=== PATIENT | male | born 1965 | race Caucasian/White ===

== ENCOUNTER 2019-04-23 22:37 | Emergency (ER) | payer SELFPAY ==
--- NOTE | 2019-04-23 23:03 | EDM.PDOC ---
ED HPI GENERAL MEDICAL PROBLEM - General Chief Complaint: General Stated Complaint: left forehead cyst/pain Time Seen by Provider: 04/23/19 23:00 Source of Information: Reports: Patient, Old Records ([facility] EMR. No paper hospital chart available.) History Limitations: Reports: No Limitations - History of Present Illness INITIAL COMMENTS - FREE TEXT/NARRATIVE: The patient drove himself to the emergency room via private automobile for evaluation of an increasing sore over his left eye, which has grown over the last couple of days. He previously thought that this was a small pimple however has had increasing swelling and soreness since that time. He denies any manipulation of the area by squeezing, etc. with no history of local injury, foreign body, etc. He does have a history of recurrent cellulitis in his scalp. The patient also denies any recent fever, cough, wheezing, dyspnea, etc.. No recent history of abdominal pain, heartburn, nausea, diarrhea, melena, gross hematochezia, or any food intolerance, including fatty foods, etc.. Onset: Gradual Onset Date: 04/21/19 Duration: Constant, Getting Worse Location: Reports: Face. Denies: Head, Neck, Chest, Abdomen, Back, Upper Extremity, Left, Upper Extremity, Right, Radiates to Quality: Reports: Same as Previous Episode, Stabbing Severity: Severe Improves with: Reports: None Worsens with: Reports: None Context: Reports: Other (As above). 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 (see below) (None) Left Forehead Pain Score (Numeric/FACES): 9 - Related Data Allergies Allergy/AdvReac Type Severity Reaction Status Date / Time amoxicillin [From Augmentin] Allergy Bronchospas Verified 04/23/19 22:44 ms clavulanic acid Allergy Bronchospas Verified 04/23/19 22:44 [From Augmentin] ms ketorolac [From Toradol] Allergy Bronchospas Verified 04/23/19 22:44 ms morphine Allergy Bronchospas Verified 04/23/19 22:44 ms tramadol Allergy Bronchospas Verified 04/23/19 22:44 ms Home Meds: Home Meds Sulfamethoxazole/Trimethoprim [Bactrim Ds Tablet] 1 each PO BIDMEALS #20 tablet 04/23/19 [Rx] clonazePAM [Klonopin] 1 mg PO BID 04/23/19 [History] Past Medical History HEENT History: Reports: Impaired Vision, Other (See Below) Other HEENT History: Patient wears glasses. Cardiovascular History: Denies: Hypertension Musculoskeletal History: Reports: Osteoarthritis Psychiatric History: Reports: Anxiety, Depression Dermatologic History: Reports: Chronic Cellulitis, Other (See Below) Other Dermatologic History: Chronic recurrent cellulitis particularly in scalp region. - Past Surgical History HEENT Surgical History: Reports: Oral Surgery, Other (See Below) Other HEENT Surgeries/Procedures: Complete dental extraction of the patient only wearing upper dentures. Social & Family History - Tobacco Use Smoking Status *Q: Current Every Day Smoker Tobacco Use Within Last Twelve Months: Cigarettes Years of Tobacco use: 30 Packs/Tins Daily: 0.5 Packs/Tins Daily Comment: Started smoking at age 23 with average use of 0.5 0.75 packs per day. Used Tobacco, but Quit: No Smoking Cessation Information Provided To Patient: Yes Second Hand Smoke Exposure: Yes Source of Second Hand Smoke Exposure: Daughter smokes Second Hand Smoke Education Provided: Yes ED ROS GENERAL - Review of Systems Review Of Systems: Comprehensive ROS is negative, except as noted in HPI. ED EXAM, GENERAL - Physical Exam Exam: See Below Exam Limited By: No Limitations General Appearance: Alert, WD/WN, No Apparent Distress, Anxious (Moderate) Eye Exam: Bilateral Eye: EOMI, Normal Inspection (Patient wears glasses. No nystagmus), PERRL Ears: Normal External Exam, Normal Canal, Hearing Grossly Normal, Normal TMs Nose: Normal Inspection, Normal Mucosa, No Blood Throat/Mouth: Normal Lips, Normal Gums, Normal Oropharynx, Normal Voice, No Airway Compromise. No: Normal Teeth (Complete absent dentition with patient normally only wearing his upper dentures as today.), Dysphagia, Perioral Cyanosis Head: Normocephalic, Facial Tenderness (Moderate at site of abscess), Other (2 cm in diameter abscess over the medial left eyebrow with +3 erythema and mild purulent drainage. No lymphangitis or evidence of foreign body, lymphangitis, etc.). No: Facial Swelling, Sinus Tenderness Neck: Normal Inspection, Supple, Non-Tender, Full Range of Motion. No: Lymphadenopathy (L), Lymphadenopathy (R), Thyromegaly Respiratory/Chest: No Respiratory Distress, Lungs Clear, Normal Breath Sounds, No Accessory Muscle Use, Chest Non-Tender. No: Pleural Rub, Retractions Cardiovascular: Normal Peripheral Pulses, Regular Rate, Rhythm, No Edema, No Gallop, No JVD, No Murmur, No Rub. No: Gallop/S3, Gallop/S4, Friction Rub Peripheral Pulses: 2+: Radial (L), Radial (R) GI/Abdominal: Normal Bowel Sounds, Soft, Non-Tender, No Organomegaly, No Distention, No Abnormal Bruit, No Mass. No: Guarding (Male) Exam: Deferred Rectal (Males) Exam: Deferred Back Exam: Normal Inspection, Full Range of Motion. No: CVA Tenderness (L), CVA Tenderness (R), Muscle Spasm Extremities: Normal Inspection, Normal Range of Motion, Non-Tender, No Pedal Edema, Normal Capillary Refill. No: David's Sign Neurological: Alert, Oriented, CN II-XII Intact, Normal Cognition, Normal Gait, No Motor/Sensory Deficits Psychiatric: Depressed Mood Skin Exam: Wound/Incision (As above). No: Diaphoretic, Increased Warmth, Lymphangitis Lymphatic: No Adenopathy ED I&D PROCEDURES - I&D Site: Left supraorbital Skin prep: Chlorhexidine (Hibiciens) Local anesthesia - Lidocaine (Xylocaine): 1% Plain Local Anesthetic Volume: 5cc Area Incised With: 11 Blade (23 mm in length incision) Drainage: Purulent, Small Amount Probed to Break Up Loculations: Yes Packed With: None Sterile Dressing: Adhesive Dressing, 4x4(s) Complications: No Progress/Comments: Despite local anesthesia as above the patient was very anxious and did not tolerate the procedure well. Secondary to patient's anxiety and discomfort only minimal probing with curved mosquito hemostats was conducted with majority of infection in the soft tissue and only small amounts of purulent drainage removed. Neosporin dressing placed by the nurse. Course - Vital Signs Last Recorded V/S: Last Vital Signs Temp 36.7 C 04/23/19 22:39 Pulse 73 04/23/19 22:39 Resp 22 H 04/23/19 22:39 BP 153/94 H 04/23/19 22:39 Pulse Ox 100 04/23/19 22:39 Vital Signs - 24 hr 04/23/19 22:39 Temperature [ 36.7 C Oral] Pulse, 73 Peripheral [ Right Pulse Oximetry] Respiratory 22 H Rate Blood Pressure 153/94 H [Left Upper Arm ] O2 Sat by Pulse 100 Oximetry - Orders/Labs/Meds Orders: Active Orders 24 hr Category Date Time Status CULTURE WOUND + SMEAR [RM] Stat Lab 04/23/19 23:40 Received Obtain Past Medical Record [OM.PC] Routine Oth 04/23/19 23:04 Active Labs: Specimen collected for Gram stain, culture, and sensitivity. Meds: Medications Discontinued Medications Generic Name Dose Route Start Last Admin Trade Name Edmundoq PRN Reason Stop Dose Admin Lidocaine HCl 5 ml 04/23/19 23:04 04/23/19 23:22 Xylocaine-Mpf 1% INJECT 04/23/19 23:05 5 ml ONETIME ONE Administration Neomycin/Polymyxin/Bacitracin 1 each 04/23/19 23:23 04/23/19 23:26 Triple Antibiotic Oint TOP 04/23/19 23:24 1 each ONETIME ONE Administration Trimethoprim/Sulfamethoxazole 1 tab 04/23/19 23:04 04/23/19 23:22 Septra Ds PO 04/23/19 23:05 1 tab ONETIME ONE Administration - Radiology Interpretation Free Text/Narrative:: None Departure - Departure Time of Disposition: 22:36 Disposition: Home, Self-Care 01 Condition: Good Clinical Impression: Tobacco abuse counseling, Elevated blood pressure reading, Mixed anxiety depressive disorder, Abscess - Discharge Information *PRESCRIPTION DRUG MONITORING PROGRAM REVIEWED*: Not Applicable *COPY OF PRESCRIPTION DRUG MONITORING REPORT IN PATIENT CHIQUIS: Not Applicable Prescriptions: Sulfamethoxazole/Trimethoprim [Bactrim Ds Tablet] 1 each PO BIDMEALS #20 tablet Instructions: Steps to Quit Smoking, [id number], Health Risks of Smoking, Cellulitis, Adult, [id number] Referrals: PCP,Not In Area [Primary Care Provider] - Forms: ED Department Discharge Additional Instructions: 1. Follow up with your regular provider in 10-14 days as needed, if symptoms persist. Bring these discharge instructions with you to that visit.. 2. Tylenol 650 mg by mouth every 4 hours and/or OTC ibuprofen 2-3 tabs by mouth every 6 hours with food as directed./needed. You may stagger these medications for 48-72 hours only, which essentially means that you are receiving a pain medication about every 2 hours. 3. NEVER EXCEED THE RECOMMENDED DOSE OF MEDICINES, INCLUDING OTC MEDICINES, ETC. 4. Antibacterial soap wash/soak with subsequent antibacterial dressing such as Neosporin, etc. as directed 2 times per day until the wound or laceration site completely heals. Keep the area clean and dry with activity restrictions as discussed. Never use hydrogen peroxide for wound care. 5. Stop all tobacco use FABY as directed/per provided information and consider contacting Quit LIne, etc.. 6. Continue to observe your blood pressures closely through your regular provider. 7. Immediately after this visit verify that your cellular telephone's voicemail has been activated and is empty. Also verify that your home telephone 's answering machine is operating properly and has space to receive messages. Note that it is sometimes necessary for us to be able to contact you at a later date to discuss your medical care. 8. Please remember that we are ALWAYS here for you and want to answer any questions you may have. Feel free to call the hospital any time and we call you back FABY. Sepsis Event Note - Evaluation Sepsis Screening Result: No Definite Risk - Focused Exam Vital Signs: Vital Signs Temp Pulse Resp BP Pulse Ox 04/23/19 22:39 36.7 C 73 22 H 153/94 H 100 Date Exam was Performed: 04/24/19 Time Exam was Performed: 00:44 - Problem List & Annotations (1) Abscess SNOMED Code(s): 457386753 Code(s): L02.91 - CUTANEOUS ABSCESS, UNSPECIFIED Status: Acute Priority: High Onset Date: ~04/21/19 Annotation/Comment:: I&D performed as above. Specimen collected for Gram stain, culture and sensitivity. Initial dose of Bactrim DS given in the emergency room with additional ten-day course of antibiotics. Wound care, etc. discussed. (2) Elevated blood pressure reading SNOMED Code(s): 11590660 Code(s): R03.0 - ELEVATED BLOOD-PRESSURE READING, W/O DIAGNOSIS OF HTN Status: Acute Priority: Medium Onset Date: 04/23/19 Annotation/Comment:: Patient denies previous history of hypertension. Note anxiety and pain components today with blood pressures to be observed closely by his regular provider. Note that the patient is visiting his daughter and is not from this area. (3) Mixed anxiety depressive disorder SNOMED Code(s): 860067291 Code(s): F41.8 - OTHER SPECIFIED ANXIETY DISORDERS Status: Chronic Priority: Medium Annotation/Comment:: Moderate control based on today's exam. Patient apparently has been visiting his daughter since 04/21 and forgot his "anxiety pills" at home and repetitively asked that I give him a limited supply/ prescription of his Klonopin. He also repetitively requested narcotic pain medications during this visit. It was explained to him that I could not prescribe these controlled substances through the emergency room, and that he needed to contact his regular provider tomorrow to telephone in these prescriptions to the local pharmacy. Continue to observe his symptoms and medications closely by his regular provider. Emotional support was provided, although he was occasionally confrontational. (4) Tobacco abuse counseling SNOMED Code(s): 122946098, 155009678, 317940137 Code(s): Z71.6 - TOBACCO ABUSE COUNSELING Status: Chronic Priority: Medium Annotation/Comment:: Tobacco cessation strongly encouraged with information provided at discharge. - Problem List Review Problem List Initiated/Reviewed/Updated: Yes - My Orders Last 24 Hours: My Active Orders 04/23/19 23:04 Obtain Past Medical Record [OM.PC] Routine 04/23/19 23:40 CULTURE WOUND + SMEAR [RM] Stat - Assessment/Plan Last 24 Hours: My Active Orders 04/23/19 23:04 Obtain Past Medical Record [OM.PC] Routine 04/23/19 23:40 CULTURE WOUND + SMEAR [RM] Stat Assessment:: As above Plan: As above. Extensive precautions were given to the patient, who is in agreement with the treatment plan. See Patient Instructions for further treatment and plan.
[2019-04-23] MEDS ORDERED: Sulfamethoxazole/Trimethoprim 800-160 MG Tab PO ONE (23:04)
[2019-04-23] MEDS ORDERED: Bacitracin/Neomycin/Polymyxin B Oint 0.9 GM U/D Packet TOP ONE (23:23)
== END 2019-04-23 23:36 | disposition home or self-care (01) ==
LOC: LL.ED 22:37
DX: L02.01 Cutaneous abscess of face (principal); R03.0 Elevated blood-pressure reading, without diagnosis of hypertension; F41.8 Other specified anxiety disorders; Z71.6 Tobacco abuse counseling; Z88.0 Allergy status to penicillin; Z88.8 Allergy status to other drugs, medicaments and biological substances; Z88.6 Allergy status to analgesic agent; Z88.5 Allergy status to narcotic agent; F17.210 Nicotine dependence, cigarettes, uncomplicated
CPT/HCPCS: 10060; 87070; 87077; 87186; 87205; 99284; A9270; J2001

== ENCOUNTER 2019-06-24 19:34 | Emergency (ER) | payer OTHER | END 2019-06-24 19:45 | disposition left against medical advice (07) | LOC: LL.ED 19:34 | DX: Z53.21 Procedure and treatment not carried out due to patient leaving prior to being seen by health care provider (principal) ==

== ENCOUNTER 2021-04-22 14:22 | Emergency (ER) | payer MEDICAID ==
[2021-04-22] MEDS ORDERED: Sodium Chloride 0.9% 10 ML Syringe FLUSH PRN (14:32)
[2021-04-22 15:35] VITALS: BP 125/87; PULSE 74
[2021-04-22 15:37] LABS: ANION GAP 10.3 meq/L (7-15); CHLORIDE,CL 103 mmol/L (98-107); SODIUM,NA 141 mmol/L (136-145)
--- NOTE | 2021-04-22 15:45 | EDM.PDOC ---
ED HPI GENERAL MEDICAL PROBLEM - General Chief Complaint: Chest Pain Stated Complaint: L sided chest pain Time Seen by Provider: 04/22/21 14:55 Source of Information: Reports: Patient History Limitations: Reports: No Limitations - History of Present Illness INITIAL COMMENTS - FREE TEXT/NARRATIVE: Patient comes to ED with complaint of left sided chest pain. Worse with breathing/coughing. Some worsening with pressure. Similar pain in past when he was diagnosed with pneumonia. Denies fevers. Mild chills today. No runny nose/sore throat. Smoker. Denies GI//Neuro changes. No other new pain complaints. Reports COPD in past medical history. Denies other chronic medical conditions. No sputum production. No increased SOB. - Related Data Allergies Allergy/AdvReac Type Severity Reaction Status Date / Time amoxicillin [From Augmentin] Allergy Bronchospas Verified 04/23/19 22:44 ms clavulanic acid Allergy Bronchospas Verified 04/23/19 22:44 [From Augmentin] ms ketorolac [From Toradol] Allergy Bronchospas Verified 04/23/19 22:44 ms morphine Allergy Bronchospas Verified 04/23/19 22:44 ms tramadol Allergy Bronchospas Verified 04/23/19 22:44 ms Home Meds: Home Meds Albuterol Sulfate [Proair Hfa] 2 puff INH Q4HR PRN 04/22/21 [History] Doxycycline [Vibra-Tabs] 100 mg PO Q12HR #10 tab 04/22/21 [Rx] Fluticasone Propion/Salmeterol [Advair 250-50 Diskus] 1 puff INH BID 04/22/21 [History] Past Medical History HEENT History: Reports: Impaired Vision, Other (See Below) Other HEENT History: Patient wears glasses. Respiratory History: Reports: COPD Musculoskeletal History: Reports: Osteoarthritis Psychiatric History: Reports: Anxiety, Depression, Other (See Below) (Suspect chronic ETOH use) Dermatologic History: Reports: Chronic Cellulitis, Other (See Below) Other Dermatologic History: Chronic recurrent cellulitis particularly in scalp region. - Past Surgical History HEENT Surgical History: Reports: Oral Surgery, Other (See Below) Other HEENT Surgeries/Procedures: Complete dental extraction of the patient only wearing upper dentures. Social & Family History - Tobacco Use Tobacco Use Status *Q: Current Every Day Tobacco User Tobacco Use Within Last Twelve Months: Cigarettes Years of Tobacco use: 40 Packs/Tins Daily: 1 Smoking Cessation Information Provided To Patient: Patient Refused - Alcohol Use Alcohol Use Comment: Patient denies chronic daily ETOH use. ED ROS GENERAL - Review of Systems Review Of Systems: Comprehensive ROS is negative, except as noted in HPI. ED EXAM, GENERAL - Physical Exam Exam: See Below Exam Limited By: No Limitations General Appearance: Alert, No Apparent Distress, Other (looks older than stated age. Smells of ETOH) Eye Exam: Bilateral Eye: EOMI, PERRL Ears: Hearing Grossly Normal Nose: No: Nasal Deformity, Nasal Swelling, Nasal Drainage Throat/Mouth: Normal Lips, Normal Voice, No Airway Compromise Head: Atraumatic, Normocephalic Neck: Supple Respiratory/Chest: No Respiratory Distress, Lungs Clear, No Accessory Muscle Use, Decreased Breath Sounds (throughout), Other (mild tenderness with palpation left lower anterior chest) Cardiovascular: Regular Rate, Rhythm, No Murmur GI/Abdominal: Soft, Non-Tender, No Distention Rectal (Males) Exam: Deferred Back Exam: No: Muscle Spasm Extremities: Normal Range of Motion Neurological: Alert, Oriented, Normal Cognition, Normal Gait, Other (equal tone/strength) Psychiatric: Normal Affect, Normal Mood Skin Exam: Warm, Dry, Intact, Normal Color Course - Vital Signs Last Recorded V/S: Last Vital Signs Temp 36.6 C 04/22/21 14:30 Pulse 74 04/22/21 15:30 Resp 16 04/22/21 15:30 BP 125/87 04/22/21 15:30 Pulse Ox 94 L 04/22/21 15:30 - Orders/Labs/Meds Orders: Active Orders 24 hr Category Date Time Status Peripheral IV Care [RC] . DIRECTED Care 04/22/21 14:33 Active Chest 2V [CR] Stat Exams 04/22/21 14:44 Taken DRUG SCREEN, URINE [URCHEM] Stat Lab 04/22/21 14:35 Ordered Sodium Chloride 0.9% [Saline Flush] Med 04/22/21 14:32 Active 10 ml FLUSH ASDIRECTED PRN Peripheral IV Insertion Adult [OM.PC] Routine Oth 04/22/21 14:32 Ordered Medication Orders Sodium Chloride (Sodium Chloride 0.9% 10 Ml Syringe) 10 ml FLUSH ASDIRECTED PRN PRN Reason: Keep Vein Open Labs: Laboratory Tests 04/22/21 04/22/21 04/22/21 Range/Units 14:30 14:30 14:30 WBC Cancelled Corrected WBC Cancelled RBC Cancelled Hgb Cancelled Hct Cancelled MCV Cancelled MCH Cancelled MCHC Cancelled RDW Cancelled RDW Std Deviation Cancelled RDW Coeff of Frida Cancelled Plt Count Cancelled MPV Cancelled Neut % (Auto) (45.0-80.0) % Lymph % (Auto) (10.0-50.0) % [place]asper % (Auto) (2.0-14.0) % Eos % (Auto) (0.0-5.0) % Baso % (Auto) (0.0-2.0) % Neut # (Auto) (1.40-7.00) K/uL Lymph # (Auto) (0.50-3.50) K/uL Jasper # (Auto) (0.00-1.00) K/uL Eos # (Auto) (0.00-0.50) K/uL Baso # (Auto) (0.00-0.20) K/uL Neutrophils % (Manual) Cancelled Band Neutrophils % Cancelled Lymphocytes % (Manual) Cancelled Atypical Lymphs % Cancelled Immat Monocytes % (Man) Cancelled Monocytes % (Manual) Cancelled Eosinophils % (Manual) Cancelled Basophils % (Manual) Cancelled Metamyelocytes % Cancelled Myelocytes % Cancelled Promyelocytes % Cancelled Blast Cells % Cancelled Plasma Cell % (Manual) Cancelled Nucleated RBC % Cancelled Immature Gran # Cancelled Absolute Neutrophils Cancelled Absolute Seg Neuts Cancelled Band Neutrophils # Cancelled Lymphocytes # (Manual) Cancelled Monocytes # (Manual) Cancelled Eosinophils # (Manual) Cancelled Basophils # (Manual) Cancelled Absolute Metamyelocyte Cancelled Absolute Myelocytes Cancelled Absolute Promyelocytes Cancelled Absolute Plasma Cells Cancelled Nucleated RBCs Cancelled Differential Comment Cancelled Bilobed Neuts Cancelled Hypersegmented Neuts Cancelled Variant Lymphocytes Cancelled Atypical Lymphocytes Cancelled Abnormal Lymphocytes Cancelled Reactive Lymphocytes Cancelled Vacuolated Monocytes Cancelled Absolute Blast Cells Cancelled Toxic Granulation Cancelled WBC Morphology Comment Cancelled Immature Plt Fraction Cancelled Plt Morphology Comment Cancelled Polychromasia Cancelled Hypochromasia Cancelled Poikilocytosis Cancelled Basophilic Stippling Cancelled Anisocytosis Cancelled Microcytosis Cancelled Macrocytosis Cancelled Spherocytes Cancelled Micro Spherocytes Cancelled Siderocytes Cancelled Sickle Cells Cancelled Target Cells Cancelled Tear Drop Cells Cancelled Ovalocytes Cancelled Stomatocytes Cancelled [place] Cells Cancelled Elliptocytes Cancelled Acanthocytes (Spur) Cancelled Rouleaux Cancelled Schistocytes Cancelled RBC Morph Comment Cancelled Smear Path Review Cancelled D-Dimer, Quantitative 321 (0-400) ng/mL Sodium 141 (136-145) mmol/L Potassium 4.0 (3.5-5.1) mmol/L Chloride 103 (98-107) mmol/L Carbon Dioxide 27.7 (21.0-32.0) mmol/L Anion Gap 10.3 (7-15) meq/L BUN 15 (7-18) mg/dL Creatinine 0.82 (0.51-1.17) mg/dL Est Cr Clr Drug Dosing TNP Estimated GFR (MDRD) > 60 mL/min Glucose 95 (70-99) mg/dL Lactic Acid (0.4-2.0) mmol/L Calcium 8.8 (8.5-10.1) mg/dL Magnesium 1.6 L (1.8-2.4) mg/dL Total Bilirubin 0.6 (0.2-1.0) mg/dL AST 188 H (15-37) U/L ALT 124 H (12-78) U/L Alkaline Phosphatase 116 (46-116) IU/L Troponin I High Sens 4 (<=76) ng/L NT-Pro-B Natriuret Pep (0-125) pg/mL Total Protein 7.5 (6.4-8.2) g/dL Albumin 3.7 (3.4-5.0) g/dL Ethyl Alcohol 0.252 H (0.000-0.080) g/dL Slides for Path Review Cancelled 04/22/21 04/22/21 04/22/21 Range/Units 14:30 14:30 14:30 WBC 4.3 Corrected WBC RBC 4.14 L Hgb 14.3 Hct 40.9 MCV 98.8 H MCH 34.5 H MCHC 35.0 RDW 11.3 RDW Std Deviation RDW Coeff of Frida Plt Count 101 L MPV Neut % (Auto) 58.1 (45.0-80.0) % Lymph % (Auto) 30.4 (10.0-50.0) % [place] % (Auto) 7.8 (2.0-14.0) % Eos % (Auto) 3.2 (0.0-5.0) % Baso % (Auto) 0.5 (0.0-2.0) % Neut # (Auto) 2.52 (1.40-7.00) K/uL Lymph # (Auto) 1.32 (0.50-3.50) K/uL [place]asper # (Auto) 0.34 (0.00-1.00) K/uL Eos # (Auto) 0.14 (0.00-0.50) K/uL Baso # (Auto) 0.02 (0.00-0.20) K/uL Neutrophils % (Manual) Band Neutrophils % Lymphocytes % (Manual) Atypical Lymphs % Immat Monocytes % (Man) Monocytes % (Manual) Eosinophils % (Manual) Basophils % (Manual) Metamyelocytes % Myelocytes % Promyelocytes % Blast Cells % Plasma Cell % (Manual) Nucleated RBC % Immature Gran # Absolute Neutrophils Absolute Seg Neuts Band Neutrophils # Lymphocytes # (Manual) Monocytes # (Manual) Eosinophils # (Manual) Basophils # (Manual) Absolute Metamyelocyte Absolute Myelocytes Absolute Promyelocytes Absolute Plasma Cells Nucleated RBCs Differential Comment Bilobed Neuts Hypersegmented Neuts Variant Lymphocytes Atypical Lymphocytes Abnormal Lymphocytes Reactive Lymphocytes Vacuolated Monocytes Absolute Blast Cells Toxic Granulation WBC Morphology Comment Immature Plt Fraction Plt Morphology Comment Polychromasia Hypochromasia Poikilocytosis Basophilic Stippling Anisocytosis Microcytosis Macrocytosis Spherocytes Micro Spherocytes Siderocytes Sickle Cells Target Cells Tear Drop Cells Ovalocytes Stomatocytes [place] Cells Elliptocytes Acanthocytes (Spur) Rouleaux Schistocytes RBC Morph Comment Smear Path Review D-Dimer, Quantitative (0-400) ng/mL Sodium (136-145) mmol/L Potassium (3.5-5.1) mmol/L Chloride (98-107) mmol/L Carbon Dioxide (21.0-32.0) mmol/L Anion Gap (7-15) meq/L BUN (7-18) mg/dL Creatinine (0.51-1.17) mg/dL Est Cr Clr Drug Dosing Estimated GFR (MDRD) mL/min Glucose (70-99) mg/dL Lactic Acid 1.8 (0.4-2.0) mmol/L Calcium (8.5-10.1) mg/dL Magnesium (1.8-2.4) mg/dL Total Bilirubin (0.2-1.0) mg/dL AST (15-37) U/L ALT (12-78) U/L Alkaline Phosphatase (46-116) IU/L Troponin I High Sens (<=76) ng/L NT-Pro-B Natriuret Pep 153 H (0-125) pg/mL Total Protein (6.4-8.2) g/dL Albumin (3.4-5.0) g/dL Ethyl Alcohol (0.000-0.080) g/dL Slides for Path Review Meds: Medications Generic Name Dose Route Start Last Admin Trade Name Freq PRN Reason Stop Dose Admin Sodium Chloride 10 ml 04/22/21 14:32 Sodium Chloride 0.9% 10 Ml Syringe FLUSH ASDIRECTED PRN Keep Vein Open - Re-Assessments/Exams Free Text/Narrative Re-Assessment/Exam: 04/22/21 15:55 No obvious infiltrate noted on chest xray. No fracture of ribs noted. Compared to a previous film from January. Patient had bilateral infiltrates at that time. COPD/degenerative spinal changes. WBC normal. O2 sats 93% on room air. Patient denied SOB. Suspect this is his baseline secondary to heavy smoking history and COPD. ETOH quite elevated at 0.252 Patient walking/talking and showed no obvious impairment. We asked him about the high ETOH level and he replied that he was drinking to treat the chest pain. Denied any issues with ETOH abuse/dependence. Some elevation in AST/ALT Normal Troponin and DDimer. EKG showed normal sinus rhythm. Mag low at 1.6 proBNP mild elevation 153 Will cover patient for atypical pneumonia given smoking history/previous similar pain with pneumonia. Given Doxy. Noted that patient said he had an xray here and was started by clinic on a 5 day course of antibiotics for pneumonia "3 weeks ago". Chart review shows that patient had xray/pneumonia 3 months ago. Recommended to patient to avoid alcohol in excess and supplemental magnesium would be beneficial. To follow up with clinic next week if no improvement in 4 days. Smoking cessation also encouraged. Patient is not interested in quitting at this time. To follow up if any sudden acute worsening noted. Departure - Departure Time of Disposition: 15:42 Disposition: Home, Self-Care 01 Condition: Good Clinical Impression: Atypical chest pain, Hypomagnesemia, Elevated LFTs, Thrombocytopenia Elevated ETOH level Qualifiers: Blood alcohol level: 240 mg/100 ml or more Qualified Code(s): Y90.8 - Blood alcohol level of 240 mg/100 ml or more - Discharge Information *PRESCRIPTION DRUG MONITORING PROGRAM REVIEWED*: Not Applicable *COPY OF PRESCRIPTION DRUG MONITORING REPORT IN PATIENT CHIQUIS: Not Applicable Prescriptions: Doxycycline [Vibra-Tabs] 100 mg PO Q12HR #10 tab Referrals: Janine Fuentes PA [Primary Care Provider] - Forms: ED Department Discharge Additional Instructions: Take the Doxy one every 12 hours. If you are not better within 4 days please follow up with your clinic for recheck. Recommend avoiding alcohol while you are being treated with the antibiotics. Continue your inhalers. If you have worsening problems please return to ER. Sepsis Event Note (ED) - Evaluation Sepsis Screening Result: No Definite Risk - Focused Exam Vital Signs: Vital Signs Temp Pulse Resp BP Pulse Ox 04/22/21 15:30 74 16 125/87 94 L 04/22/21 15:00 70 16 135/80 93 L 04/22/21 14:30 36.6 C 71 14 135/80 93 L - My Orders Last 24 Hours: My Active Orders 04/22/21 14:32 Sodium Chloride 0.9% [Saline Flush] 10 ml FLUSH ASDIRECTED PRN Peripheral IV Insertion Adult [OM.PC] Routine 04/22/21 14:33 Peripheral IV Care [RC] . DIRECTED 04/22/21 14:35 DRUG SCREEN, URINE [URCHEM] Stat 04/22/21 14:44 Chest 2V [CR] Stat - Assessment/Plan Last 24 Hours: My Active Orders 04/22/21 14:32 Sodium Chloride 0.9% [Saline Flush] 10 ml FLUSH ASDIRECTED PRN Peripheral IV Insertion Adult [OM.PC] Routine 04/22/21 14:33 Peripheral IV Care [RC] . DIRECTED 04/22/21 14:35 DRUG SCREEN, URINE [URCHEM] Stat 04/22/21 14:44 Chest 2V [CR] Stat
== END 2021-04-22 15:48 | disposition home or self-care (01) ==
LOC: LL.ED 14:22
DX: R07.89 Other chest pain (principal); D69.6 Thrombocytopenia, unspecified; E83.42 Hypomagnesemia; J44.9 Chronic obstructive pulmonary disease, unspecified; Y90.8 Blood alcohol level of 240 mg/100 ml or more; Z88.5 Allergy status to narcotic agent; Z88.0 Allergy status to penicillin; Z88.6 Allergy status to analgesic agent; Z72.0 Tobacco use
CPT/HCPCS: 36415; 71046; 80053; 80307; 83605; 83735; 83880; 84484; 85025; 85379; 93005; 99284; 99285-25

== ENCOUNTER 2022-01-19 11:41 | Emergency (ER) | payer MEDICAID ==
[2022-01-19] MEDS ORDERED: Sodium Chloride 0.9% 1,000 ML IV ONE (12:10)
[2022-01-19] MEDS ORDERED: HYDROmorphone 1 MG/ML Syringe ONE (12:13)
[2022-01-19] MEDS ORDERED: Ondansetron 4 MG/2 ML SDV ONE (12:13)
[2022-01-19] MEDS ORDERED: HYDROmorphone 1 MG/ML Syringe IVPUSH ONE ×2 (12:13→12:58)
[2022-01-19] MEDS ORDERED: Ondansetron 4 MG/2 ML SDV IVPUSH ONE (12:13)
[2022-01-19] MEDS: Sodium Chloride 0.9% 10 ML Syringe FLUSH PRN ×2 (12:22→13:21)
[2022-01-19 12:32] LABS: CORONAVIRUS COVID-19 NAA NEGATIVE (NEGATIVE); RESPIRATORY SYNCYTIAL VIR NAA NEGATIVE (NEGATIVE)
[2022-01-19 13:28] LABS: ANION GAP 17.5 meq/L (7-15)
[2022-01-19] MEDS ORDERED: Magnesium Sulfate/Water 2 GM in Premix Bag 1 BAG IV ONE (13:33)
[2022-01-19] MEDS ORDERED: Iopamidol 755 Mg/ML 100 ML Bottle IVPUSH ONE ×2 (14:00→14:01)
[2022-01-19] MEDS ORDERED: Thiamine 200 MG/2 ML MDV IVPUSH ONE (14:21)
[2022-01-19 15:28] LABS: BARBITURATE SCREEN,URINE NEGATIVE (NEGATIVE); BENZODIAZEPINES SCREEN,URINE POSITIVE (NEGATIVE); EDDP,URINE SCREEN NEGATIVE (NEGATIVE); TCA SCREEN,URINE NEGATIVE (NEGATIVE); THC SCREEN,URINE 50 NG/ML NEGATIVE (NEGATIVE)
[2022-01-19 15:37] LABS: BUPRENORPHINE SCREEN,URINE POSITIVE (NEGATIVE)
== END 2022-01-19 16:25 | disposition left against medical advice (07) ==
LOC: LL.ED 11:41
DX: R00.0 Tachycardia, unspecified (principal); E83.42 Hypomagnesemia; F11.90 Opioid use, unspecified, uncomplicated; J44.9 Chronic obstructive pulmonary disease, unspecified; M19.90 Unspecified osteoarthritis, unspecified site; F17.210 Nicotine dependence, cigarettes, uncomplicated; Z88.0 Allergy status to penicillin; Z88.5 Allergy status to narcotic agent; Z88.6 Allergy status to analgesic agent; Z20.822 Contact with and (suspected) exposure to COVID-19
CPT/HCPCS: 0241U; 36415; 71046; 71275; 80048; 80076; 80305-QW; 80307; 81001; 82140; 83605; 83735; 84484; 85025; 85379; 85610; 93005; 93010; 96361; 96365; 96366; 96375; 96376; 99284; 99285-25; J1170; J2405; J3411; J3475; J3490; J7030; Q9967

== ENCOUNTER 2022-05-09 17:10 | Emergency (ER) | payer MEDICAID | END 2022-05-09 18:46 | disposition home or self-care (01) | LOC: LL.ED 17:10 | DX: R42 Dizziness and giddiness (principal); J44.9 Chronic obstructive pulmonary disease, unspecified; Z88.0 Allergy status to penicillin; Z88.5 Allergy status to narcotic agent | CPT/HCPCS: 99283 ==

== ENCOUNTER 2022-05-10 13:00 | Emergency (ER) | payer MEDICAID ==
[2022-05-10] MEDS ORDERED: Sodium Chloride 0.9% 10 ML Syringe FLUSH PRN (14:12)
[2022-05-10] MEDS: Sodium Chloride 0.9% 1,000 ML IV ONE ×2 (14:50→16:00)
[2022-05-10 14:59] LABS: CHLORIDE,CL 90 mmol/L (98-107); SODIUM,NA 130 mmol/L (136-145)
[2022-05-10 15:00] LABS: ANION GAP 13.2 meq/L (7-15); ESTIMATED GFR 114 mL/min (>=60)
[2022-05-10 15:44] LABS: CORONAVIRUS COVID-19 NAA NEGATIVE (NEGATIVE); RESPIRATORY SYNCYTIAL VIR NAA NEGATIVE (NEGATIVE)
[2022-05-10] MEDS: Potassium Chloride Riders 10 MEQ in Premix Bag 1 BAG IV ONE (16:15)
[2022-05-10] MEDS: Potassium Chloride Riders 10 MEQ in Premix Bag 1 BAG IV SCH (16:16)
== END 2022-05-10 17:20 | disposition home or self-care (01) ==
LOC: LL.ED 13:00
DX: E86.0 Dehydration (principal); E87.1 Hypo-osmolality and hyponatremia; E87.6 Hypokalemia; J44.9 Chronic obstructive pulmonary disease, unspecified; M19.90 Unspecified osteoarthritis, unspecified site; Z79.899 Other long term (current) drug therapy; Z88.0 Allergy status to penicillin; Z88.1 Allergy status to other antibiotic agents; Z88.5 Allergy status to narcotic agent; Z20.822 Contact with and (suspected) exposure to COVID-19
CPT/HCPCS: 0241U; 36415; 80053; 85025; 96361; 96365; 99284-25; J3480; J7030

== ENCOUNTER 2022-05-25 13:49 | Inpatient (IN) | payer MEDICAID ==
[2022-05-25] MEDS ORDERED: Sodium Chloride 0.9% 1,000 ML IV ONE ×2 (14:17→15:26)
[2022-05-25 14:50] LABS: ANION GAP 15.5 meq/L (7-15); CHLORIDE,CL 92 mmol/L (98-107); ESTIMATED GFR 102 mL/min (>=60); SODIUM,NA 131 mmol/L (136-145)
[2022-05-25 15:06] LABS: RESPIRATORY SYNCYTIAL VIR NAA NEGATIVE (NEGATIVE)
[2022-05-25 15:10] LABS: CORONAVIRUS COVID-19 NAA POSITIVE (NEGATIVE)
[2022-05-25] MEDS ORDERED: HYDROmorphone 2 MG Tab PO ONE (15:50)
[2022-05-25 15:56] LABS: BARBITURATE SCREEN,URINE NEGATIVE (NEGATIVE); BENZODIAZEPINES SCREEN,URINE NEGATIVE (NEGATIVE); EDDP,URINE SCREEN NEGATIVE (NEGATIVE); TCA SCREEN,URINE NEGATIVE (NEGATIVE); THC SCREEN,URINE 50 NG/ML NEGATIVE (NEGATIVE)
[2022-05-25] MEDS ORDERED: Dexamethasone 10 MG/ML SDV IVPUSH ONE (15:59)
[2022-05-25 16:00] LABS: BUPRENORPHINE SCREEN,URINE POSITIVE (NEGATIVE)
[2022-05-25] MEDS ORDERED: Iopamidol 755 Mg/ML 100 ML Bottle ONE (16:08)
[2022-05-25] MEDS: Sodium Chloride 0.9% 10 ML Syringe FLUSH PRN ×3 (16:32→19:58)
[2022-05-25] MEDS ORDERED: Iopamidol 755 Mg/ML 100 ML Bottle IVPUSH ONE (17:18)
[2022-05-25] MEDS ORDERED: cefTRIAXone 1 GM in Sodium Chloride 0.9% 100 ML IV SCH (18:15)
[2022-05-25] MEDS ORDERED: Azithromycin 500 MG in Sodium Chloride 0.9% 250 ML IV SCH ×2 (18:15→20:00)
[2022-05-25] MEDS ORDERED: Ondansetron 4 MG/2 ML SDV IVPUSH PRN (18:49)
[2022-05-25] MEDS ORDERED: Nicotine 21 MG/24 Hr Patch TRDERM SCH (19:00)
[2022-05-25] MEDS ORDERED: HYDROmorphone 2 MG Tab PO PRN ×2 (19:17→21:58)
[2022-05-25] MEDS ORDERED: Ketorolac 15 MG/ML SDV IVPUSH PRN (19:19)
[2022-05-25] MEDS: Nicotine 21 MG/24 Hr Patch TRDERM SCH (19:55)
[2022-05-25] MEDS: Sodium Chloride 0.9% 1,000 ML IV SCH (19:56)
[2022-05-25] MEDS: Albuterol/Ipratropium 3.0-0.5 MG/3 ML Neb Soln NEB SCH (19:56)
[2022-05-25] MEDS: Naproxen 250 MG Tab PO SCH (20:59)
[2022-05-26] MEDS: Albuterol/Ipratropium 3.0-0.5 MG/3 ML Neb Soln NEB SCH ×4 (01:38→19:12)
[2022-05-26] MEDS: Sodium Chloride 0.9% 1,000 ML IV SCH ×2 (06:45→18:47)
[2022-05-26] MEDS ORDERED: Magnesium Oxide 400 MG Tab PO SCH (08:00)
[2022-05-26] MEDS: Naproxen 250 MG Tab PO SCH (08:12)
[2022-05-26] MEDS: Enoxaparin 40 MG/0.4 ML Syringe SUBCUT SCH ×2 (08:13→10:35)
[2022-05-26] MEDS: Ampicillin/Sulbactam Na 3 GM in Sodium Chloride 0.9% 100 ML IV SCH ×3 (09:47→22:22)
[2022-05-26] MEDS: Magnesium Chloride 64 MG Tab.ER PO SCH ×2 (09:50→17:20)
[2022-05-26 09:58] LABS: ANION GAP 5.8 meq/L (7-15)
[2022-05-26] MEDS: Acetaminophen 325 MG Tab PO PRN (13:33)
[2022-05-26] MEDS: HYDROmorphone 2 MG Tab PO PRN (14:20)
[2022-05-26] MEDS: Nicotine 21 MG/24 Hr Patch TRDERM SCH (19:12)
[2022-05-26] MEDS: ClonazePAM 0.5 MG Tab PO PRN (19:12)
[2022-05-26] MEDS ORDERED: Naloxone 0.4 MG/ML SDV IVPUSH PRN (22:01)
[2022-05-27] MEDS: Ibuprofen 200 MG Tab PO PRN ×2 (00:18→19:19)
[2022-05-27] MEDS: Ampicillin/Sulbactam Na 3 GM in Sodium Chloride 0.9% 100 ML IV SCH ×4 (03:21→22:57)
[2022-05-27] MEDS: Albuterol/Ipratropium 3.0-0.5 MG/3 ML Neb Soln NEB SCH ×4 (03:21→19:10)
[2022-05-27] MEDS: Acetaminophen 325 MG Tab PO PRN (03:30)
[2022-05-27] MEDS: Enoxaparin 40 MG/0.4 ML Syringe SUBCUT SCH (07:29)
[2022-05-27] MEDS: Magnesium Chloride 64 MG Tab.ER PO SCH ×2 (07:30→17:17)
[2022-05-27 08:08] LABS: ANION GAP 8.2 meq/L (7-15)
[2022-05-27] MEDS: Sodium Chloride 0.9% 10 ML Syringe FLUSH PRN ×3 (10:39→22:58)
[2022-05-27] MEDS: HYDROmorphone 2 MG Tab PO PRN ×3 (11:40→23:11)
[2022-05-27] MEDS: Nicotine 21 MG/24 Hr Patch TRDERM SCH (19:10)
[2022-05-27] MEDS: ClonazePAM 0.5 MG Tab PO PRN (19:10)
[2022-05-28] MEDS: Albuterol/Ipratropium 3.0-0.5 MG/3 ML Neb Soln NEB SCH ×3 (03:50→13:17)
[2022-05-28] MEDS: Ampicillin/Sulbactam Na 3 GM in Sodium Chloride 0.9% 100 ML IV SCH ×3 (04:12→15:31)
[2022-05-28] MEDS: Ibuprofen 200 MG Tab PO PRN ×2 (04:13→13:16)
[2022-05-28] MEDS: HYDROmorphone 2 MG Tab PO PRN ×2 (05:12→11:20)
[2022-05-28] MEDS: Sodium Chloride 0.9% 10 ML Syringe FLUSH PRN ×2 (05:13→11:21)
[2022-05-28] MEDS: Enoxaparin 40 MG/0.4 ML Syringe SUBCUT SCH (07:52)
[2022-05-28] MEDS: Magnesium Chloride 64 MG Tab.ER PO SCH (07:52)
[2022-05-28 09:06] LABS: ANION GAP 6.4 meq/L (7-15)
[2022-05-28] MEDS ORDERED: Lidocaine 2% HCl 11 ML Jelly Filled Syringe TOP ONE (13:33)
[2022-06-01 13:47] LABS: QUANTIFERON TB1 AG VALUE 0.16 IU/mL; QUANTIFERON TB2 AG VALUE 0.13 IU/mL
== END 2022-05-28 16:20 | disposition home or self-care (01) | DRG 871 ==
LOC: LL.ED 13:49 → LL.MS 18:15
PROVIDERS: ADMIT Emergency Medicine; ATTEND Emergency Medicine
DX: A41.89 Other specified sepsis (principal); J69.0 Pneumonitis due to inhalation of food and vomit; U07.1 COVID-19; E46 Unspecified protein-calorie malnutrition; Z68.1 Body mass index [BMI] 19.9 or less, adult; H54.7 Unspecified visual loss; J44.9 Chronic obstructive pulmonary disease, unspecified; M19.90 Unspecified osteoarthritis, unspecified site; F41.9 Anxiety disorder, unspecified; E83.42 Hypomagnesemia; B18.2 Chronic viral hepatitis C; G89.29 Other chronic pain; F32.A Depression, unspecified; F17.210 Nicotine dependence, cigarettes, uncomplicated; Z79.899 Other long term (current) drug therapy; Z88.1 Allergy status to other antibiotic agents; Z88.5 Allergy status to narcotic agent; Z98.890 Other specified postprocedural states
CPT/HCPCS: 0241U; 36415; 70450; 71046; 71275; 80048; 80053; 80305-QW; 80307; 81001; 83605; 83735; 83880; 85025; 85379; 86480; 87040; 87070; 87205; 94640; A9270-GY; J0295; J0456; J0696; J1100; J1650; J3475; J3490; J7030; J7050; J7620-GY; Q9967

== ENCOUNTER 2022-08-31 14:45 | Emergency (ER) | payer BC, MEDICAID ==
[2022-08-31] MEDS: 50% Dextrose in Water 50 ML Syringe IVPUSH ONE (15:05)
[2022-08-31] MEDS: Sodium Chloride 0.9% 1,000 ML IV ONE (15:20)
[2022-08-31] MEDS: 50% Dextrose in Water 50 ML Syringe ONE (15:21)
[2022-08-31 15:42] LABS: ANION GAP 21.1 meq/L (7-15)
[2022-08-31 17:05] LABS: CORONAVIRUS COVID-19 NAA NEGATIVE (NEGATIVE); RESPIRATORY SYNCYTIAL VIR NAA NEGATIVE (NEGATIVE)
[2022-08-31] MEDS ORDERED: Sodium Chloride 0.9% 10 ML Syringe FLUSH PRN (17:59)
== END 2022-08-31 19:15 | disposition home or self-care (01) ==
LOC: LL.ED 14:45
DX: E16.2 Hypoglycemia, unspecified (principal); E87.1 Hypo-osmolality and hyponatremia; J44.9 Chronic obstructive pulmonary disease, unspecified; Z88.0 Allergy status to penicillin; Z88.5 Allergy status to narcotic agent; Z20.822 Contact with and (suspected) exposure to COVID-19
CPT/HCPCS: 0241U; 36415; 70450; 80053; 82947; 85025; 85379; 96361; 96374; 99284; 99285-25; J3490; J7030

== ENCOUNTER 2023-01-29 16:47 | Emergency (ER) | payer MEDICAID ==
[2023-01-29 18:05] LABS: BASOPHILS ABSOLUTE AUTO 0.03 K/uL (0.00-0.20); BASOPHILS PERCENT AUTO 0.6 % (0.0-2.0); EOSINOPHILS ABSOLUTE AUTO 0.09 K/uL (0.00-0.50); EOSINOPHILS PERCENT AUTO 1.7 % (0.0-5.0); HEMATOCRIT 31.9 % (39.0-49.0); LYMPHOCYTES PERCENT AUTO 14.7 % (10.0-50.0); MEAN CORPUSCULAR HEMOGLOBIN 30.5 pg (28.2-33.3); MEAN CORPUSCULAR HGB CONC 34.5 g/dL (31.7-36.0); MEAN CORPUSCULAR VOLUME 88.4 fL (84.0-98.0); MONOCYTES ABSOLUTE AUTO 0.45 K/uL (0.00-1.00); MONOCYTES PERCENT AUTO 8.3 % (2.0-14.0); NEUTROPHILS ABSOLUTE AUTO 4.07 K/uL (1.40-7.00); NEUTROPHILS PERCENT AUTO 74.7 % (45.0-80.0); PLATELET COUNT,PLT 252 K/uL (150-350); RED BLOOD CELL COUNT 3.61 M/uL (4.33-5.41); RED CELL DISTRIBUTION WIDTH 12.1 % (11.2-14.1); WHITE BLOOD CELL COUNT,WBC 5.4 K/uL (4.0-10.2)
[2023-01-29 18:23] LABS: INR 0.9 (0.9-1.1); PROTHROMBIN TIME 9.4 SEC (9.0-11.1)
[2023-01-29 18:26] LABS: ALANINE AMINOTRANSFERASE,ALT 20 U/L (12-78); ALKALINE PHOSPHATASE 85 IU/L (46-116); BILIRUBIN TOTAL 0.2 mg/dL (0.2-1.0); BLOOD UREA NITROGEN,BUN 14 mg/dL (7-18); CALCIUM 8.8 mg/dL (8.5-10.1); CHLORIDE,CL 98 mmol/L (98-107); CREATININE 0.61 mg/dL (0.51-1.17); GLUCOSE RANDOM 96 mg/dL (70-99); MAGNESIUM 1.3 mg/dL (1.8-2.4); PHOSPHORUS 3.9 mg/dL (2.6-4.7); POTASSIUM,K 3.8 mmol/L (3.5-5.1); SODIUM,NA 137 mmol/L (136-145)
[2023-01-29 18:27] LABS: ANION GAP 12.8 meq/L (7-15); ESTIMATED GFR 111 mL/min (>=60)
[2023-01-29 18:29] LABS: LACTIC ACID 1.6 mmol/L (0.4-2.0)
[2023-01-29] MEDS: Magnesium Sulfate/Water 4 GM in Premix Bag 1 BAG IV ONE (18:51)
[2023-01-29] MEDS: Sodium Chloride 0.9% 1,000 ML IV ONE (18:51)
[2023-01-29] MEDS ORDERED: Naloxone 0.4 MG/ML SDV IVPUSH PRN (19:18)
[2023-01-29] MEDS: Sodium Chloride 0.9% 10 ML Syringe FLUSH PRN (19:22)
[2023-01-29] MEDS: HYDROmorphone 0.5 MG/0.5 ML Syringe IVPUSH ONE (19:23)
[2023-01-29 19:27] LABS: ASPARTATE AMNIOTRANSFERASE,AST 48 U/L (15-37)
[2023-01-29] MEDS: Iopamidol 612 MG/ML 100 ML Bottle IVPUSH ONE ×2 (20:38)
[2023-01-29 22:49] VITALS: BP 146/98; PULSE 78
== END 2023-01-29 22:45 | disposition home or self-care (01) ==
LOC: LL.ED 16:47
DX: K22.89 Other specified disease of esophagus (principal); E83.42 Hypomagnesemia; F17.210 Nicotine dependence, cigarettes, uncomplicated; J44.9 Chronic obstructive pulmonary disease, unspecified; Z79.899 Other long term (current) drug therapy; Z88.0 Allergy status to penicillin; Z88.1 Allergy status to other antibiotic agents; Z88.5 Allergy status to narcotic agent
CPT/HCPCS: 36415; 71270; 74178; 80053; 80307; 83605; 83735; 84100; 85025; 85610; 96365; 96366; 96375; 99284-25; J1170; J3475; J3490; J7030; Q9967

== ENCOUNTER 2023-02-13 15:08 | Emergency (ER) | payer MEDICAID ==
[2023-02-13] MEDS ORDERED: Sodium Chloride 0.9% 1,000 ML IV ONE ×2 (15:52→17:56)
[2023-02-13] MEDS ORDERED: Sodium Chloride 0.9% 10 ML Syringe FLUSH PRN (15:52)
[2023-02-13 15:57] LABS: BASOPHILS ABSOLUTE AUTO 0.01 K/uL (0.00-0.20); BASOPHILS PERCENT AUTO 0.2 % (0.0-2.0); EOSINOPHILS ABSOLUTE AUTO 0.01 K/uL (0.00-0.50); EOSINOPHILS PERCENT AUTO 0.2 % (0.0-5.0); LYMPHOCYTES PERCENT AUTO 1.8 % (10.0-50.0); MEAN CORPUSCULAR HEMOGLOBIN 30.7 pg (28.2-33.3); MEAN CORPUSCULAR HGB CONC 34.2 g/dL (31.7-36.0); MEAN CORPUSCULAR VOLUME 89.8 fL (84.0-98.0); MONOCYTES ABSOLUTE AUTO 0.04 K/uL (0.00-1.00); MONOCYTES PERCENT AUTO 0.7 % (2.0-14.0); NEUTROPHILS ABSOLUTE AUTO 5.26 K/uL (1.40-7.00); NEUTROPHILS PERCENT AUTO 97.1 % (45.0-80.0); PLATELET COUNT,PLT 199 K/uL (150-350); RED BLOOD CELL COUNT 4.23 M/uL (4.33-5.41); RED CELL DISTRIBUTION WIDTH 14.7 % (11.2-14.1); WHITE BLOOD CELL COUNT,WBC 5.4 K/uL (4.0-10.2)
[2023-02-13 16:11] LABS: ALANINE AMINOTRANSFERASE,ALT 36 U/L (12-78); ALBUMIN 3.3 g/dL (3.4-5.0); ALKALINE PHOSPHATASE 159 IU/L (46-116); ASPARTATE AMNIOTRANSFERASE,AST 79 U/L (15-37); BILIRUBIN TOTAL 0.4 mg/dL (0.2-1.0); BLOOD UREA NITROGEN,BUN 10 mg/dL (7-18); CALCIUM 8.5 mg/dL (8.5-10.1); CARBON DIOXIDE,CO2 17.8 mmol/L (21.0-32.0); CHLORIDE,CL 94 mmol/L (98-107); CREATININE 1.02 mg/dL (0.51-1.17); ETHANOL BLOOD MEDICAL 0.092 g/dL (0.000-0.080); GLUCOSE RANDOM 69 mg/dL (70-99); MAGNESIUM 1.1 mg/dL (1.8-2.4); PROTEIN TOTAL,TP 6.9 g/dL (6.4-8.2); SODIUM,NA 136 mmol/L (136-145)
[2023-02-13] MEDS ORDERED: Ondansetron 4 MG/2 ML SDV IVPUSH ONE (16:11)
[2023-02-13] MEDS ORDERED: LORazepam 2 MG/ML SDV IVPUSH ONE (16:15)
[2023-02-13] MEDS ORDERED: Iopamidol 612 MG/ML 100 ML Bottle IVPUSH ONE (16:19)
[2023-02-13 16:24] LABS: CORONAVIRUS COVID-19 NAA NEGATIVE (NEGATIVE); INFLUENZA A NAA NEGATIVE (NEGATIVE); INFLUENZA B NAA NEGATIVE (NEGATIVE); RESPIRATORY SYNCYTIAL VIR NAA NEGATIVE (NEGATIVE)
[2023-02-13 16:25] LABS: ANION GAP 28.2 meq/L (7-15); ESTIMATED GFR 85 mL/min (>=60)
[2023-02-13] MEDS ORDERED: Thiamine 100 MG in Sodium Chloride 0.9% 100 ML IV ONE (16:56)
[2023-02-13] MEDS ORDERED: Magnesium Sulfate/Water 2 GM in Premix Bag 1 BAG IV SCH (17:00)
[2023-02-13] MEDS ORDERED: Piperacillin/Tazobactam 3.375 GM in Sodium Chloride 0.9% 100 ML IV SCH (17:15)
[2023-02-13 18:26] LABS: APPEARANCE,URINE CLOUDY; BILIRUBIN,URINE SMALL (NEGATIVE); COLOR,URINE YELLOW; GLUCOSE,URINE NEGATIVE (NEGATIVE); KETONES,URINE 80 mg/dL (NEGATIVE); LEUKOCYTE ESTERASE,URINE NEGATIVE (NEGATIVE); NITRITE,URINE NEGATIVE (NEGATIVE); OCCULT BLOOD,URINE SMALL (NEGATIVE); PH,URINE 5.5 (5.0-9.0); PROTEIN,URINE >=300 mg/dL (NEGATIVE); UROBILINOGEN,URINE 0.2 E.U./dL (0.2-1.0)
[2023-02-13] MEDS ORDERED: Thiamine 200 MG/2 ML MDV IM ONE (18:36)
[2023-02-13 18:52] LABS: GRANULAR CASTS,URINE MANY; HYALINE CASTS,URINE MANY; WBC,URINE 0-5 /HPF
[2023-02-13 18:57] LABS: AMPHETAMINES SCREEN, URINE NEGATIVE (NEGATIVE); BARBITURATE SCREEN,URINE NEGATIVE (NEGATIVE); BENZODIAZEPINES SCREEN,URINE NEGATIVE (NEGATIVE); COCAINE METABOLITES,URINE NEGATIVE (NEGATIVE); EDDP,URINE SCREEN NEGATIVE (NEGATIVE); METHAMPHETAMINES SCREEN, URINE NEGATIVE (NEGATIVE); TCA SCREEN,URINE NEGATIVE (NEGATIVE); THC SCREEN,URINE 50 NG/ML POSITIVE (NEGATIVE)
[2023-02-13 18:58] LABS: BUPRENORPHINE SCREEN,URINE NEGATIVE (NEGATIVE); OXYCODONE SCREEN,URINE NEGATIVE (NEGATIVE)
== END 2023-02-13 19:10 ==
LOC: LL.ED 15:08
DX: E86.0 Dehydration (principal); E83.42 Hypomagnesemia; R77.8 Other specified abnormalities of plasma proteins; E16.2 Hypoglycemia, unspecified; S20.312A Abrasion of left front wall of thorax, initial encounter; F10.10 Alcohol abuse, uncomplicated; R11.10 Vomiting, unspecified; R63.4 Abnormal weight loss; R00.0 Tachycardia, unspecified; J44.9 Chronic obstructive pulmonary disease, unspecified; Z88.0 Allergy status to penicillin; Z88.1 Allergy status to other antibiotic agents; Z88.5 Allergy status to narcotic agent; Z79.899 Other long term (current) drug therapy; Z20.822 Contact with and (suspected) exposure to COVID-19; W06.XXXA Fall from bed, initial encounter
CPT/HCPCS: 0241U; 36415; 70450; 71045; 71260; 72040; 74177; 80053; 80305; 80307; 81001; 82140; 82947; 83605; 83735; 83880; 84484; 85025; 87040 ×2; 87077; 87186; 93005; 93010; 96361; 96365; 96372; 96375; 99284; 99285; J2060; J2405; J2543; J3411; J3475; J3490; J7030 ×2; Q9967

== ENCOUNTER 2023-06-11 14:40 | Emergency (ER) | payer MEDICAID | END 2023-06-11 17:10 | disposition home or self-care (01) | LOC: LL.ED 14:40 | DX: G89.29 Other chronic pain (principal); Z76.5 Malingerer [conscious simulation]; Z88.0 Allergy status to penicillin; Z88.5 Allergy status to narcotic agent; Z88.8 Allergy status to other drugs, medicaments and biological substances; Z79.899 Other long term (current) drug therapy | CPT/HCPCS: 99284 ==